=== PATIENT | male | born 1990 ===

== ENCOUNTER 2019-03-06 13:16 | Emergency (ER) | payer SELFPAY ==
[~2019-03-06] VITALS: Wt 90.0 kg
[2019-03-06 13:29] VITALS: BP 120/56; PULSE 78; RESP 18
== END 2019-03-06 16:52 | disposition left against medical advice (07) ==
LOC: FTE 13:16
DX: Z53.21 Procedure and treatment not carried out due to patient leaving prior to being seen by health care provider (principal)